=== PATIENT | male | born 1975 | race Native Hawaiian/Other Pacific Islander ===

== ENCOUNTER 2020-09-27 17:04 | Emergency (ER) | payer SELFPAY ==
[2020-09-27 17:14] VITALS: BP 140/82
[2020-09-27] MEDS ORDERED: IBUPROFEN 800 MG TAB PO ONE (18:28)
--- NOTE | 2020-09-27 18:33 | Emergency Department Report ---
ED ENT HPI - General Chief complaint: Earache Stated complaint: PAIN IN EAR Time Seen by Provider: 09/27/20 17:58 Source: patient Mode of arrival: Ambulatory Limitations: No Limitations - History of Present Illness MD complaint: ear pain -: Gradual, days(s) Location: R ear Severity: severe Severity scale (0 -10): 10 Quality: other (painful) Consistency: constant Improves with: none Worsens with: none Context-Epistaxis: other Context- Ear: other (denies recent illness, swimming, travel scuba diving or t raums) Associated Symptoms: discharge from ear, other (Headache and drainage from right ear). denies: fever, cough, gum swelling, toothache, pain with swallowing, sore throat, tinnitus, hearing loss - Related Data Previous Rx's Medication Instructions Recorded Last Taken Type Amoxicillin [Trimox CAP] 500 mg PO Q8H #30 capsule 09/27/20 Unknown Rx Ibuprofen [Motrin] 800 mg PO Q8HR PRN #30 tablet 09/27/20 Unknown Rx Neomy/Polymyx B/Hc Otic Susp 4 drops OTIC TID 10 Days #1 bottle 09/27/20 Unknown Rx [Cortisporin (Otic) Susp] Allergies Allergy/AdvReac Type Severity Reaction Status Date / Time No Known Allergies Allergy Unverified 09/27/20 17:12 ED Dental HPI - General Chief complaint: Earache Stated complaint: PAIN IN EAR Time Seen by Provider: 09/27/20 17:58 Source: patient Mode of arrival: Ambulatory Limitations: No Limitations - Related Data Previous Rx's Medication Instructions Recorded Last Taken Type Amoxicillin [Trimox CAP] 500 mg PO Q8H #30 capsule 09/27/20 Unknown Rx Ibuprofen [Motrin] 800 mg PO Q8HR PRN #30 tablet 09/27/20 Unknown Rx Neomy/Polymyx B/Hc Otic Susp 4 drops OTIC TID 10 Days #1 bottle 09/27/20 Unknown Rx [Cortisporin (Otic) Susp] Allergies Allergy/AdvReac Type Severity Reaction Status Date / Time No Known Allergies Allergy Unverified 09/27/20 17:12 ED Review of Systems ROS: Stated complaint: PAIN IN EAR Other details as noted in HPI Comment: All other systems reviewed and negative Constitutional: denies: chills, diaphoresis, fever, malaise, weakness Eyes: denies: eye pain, eye discharge, vision change ENT: ear pain. denies: throat pain, dental pain, hearing loss, epistaxis, congestion Cardiovascular: denies: chest pain, palpitations, dyspnea on exertion, edema, syncope, paroxysmal nocturnal dyspnea Gastrointestinal: denies: abdominal pain, nausea, vomiting, diarrhea, constipation, hematemesis, melena, hematochezia Genitourinary: denies: urgency, dysuria, frequency, hematuria, discharge, testicular pain, testicular mass Musculoskeletal: denies: back pain, joint swelling, arthralgia Skin: denies: rash, lesions Neurological: headache. denies: numbness, paresthesias, confusion, abnormal gait, vertigo Psychiatric: denies: anxiety, depression, auditory hallucinations, visual hallucinations, homicidal thoughts, suicidal thoughts Hematological/Lymphatic: denies: easy bleeding, easy bruising, swollen glands ED Past Medical Hx - Past Medical History Previous Medical History?: No - Surgical History Past Surgical History?: No - Medications Home Medications: Home Medications Medication Instructions Recorded Confirmed Last Taken Type Amoxicillin [Trimox CAP] 500 mg PO Q8H #30 capsule 09/27/20 Unknown Rx Ibuprofen [Motrin] 800 mg PO Q8HR PRN #30 tablet 09/27/20 Unknown Rx Neomy/Polymyx B/Hc Otic Susp 4 drops OTIC TID 10 Days #1 bottle 09/27/20 Unknown Rx [Cortisporin (Otic) Susp] ED Physical Exam - General Limitations: No Limitations General appearance: alert, other (patient appears uncomfortable from pain) - Eye Eye exam: Present: normal appearance Pupils: Present: normal accommodation - Expanded ENT Exam Expanded TM/Canal exam: Erythema: Right TM, Effusion: Right TM, Canal Discharge: Right TM, Canal Tenderness: Right TM Mouth exam: Absent: drooling, trismus, muffled voice, tongue normal, tongue elevation - Neck Neck exam: Present: normal inspection, lymphadenopathy (just below right ear behind the sternocleidomastoid muscle with some tenderness to palpation but no cellulitis) - Respiratory Respiratory exam: Present: normal lung sounds bilaterally. Absent: respiratory distress, wheezes, rales, rhonchi - Cardiovascular Cardiovascular Exam: Present: regular rate, normal rhythm, normal heart sounds - GI/Abdominal GI/Abdominal exam: Present: soft. Absent: distended, tenderness, guarding - Neurological Exam Neurological exam: Present: alert, oriented X3, CN II-XII intact, normal gait - Psychiatric Psychiatric exam: Present: normal affect, normal mood - Skin Skin exam: Present: intact ED Course Vital Signs 09/27/20 17:13 Temperature 98.6 F Pulse Rate 66 Respiratory 20 Rate Blood Pressure 140/82 [Right] O2 Sat by Pulse 96 Oximetry Critical care attestation.: If time is entered above; I have spent that time in minutes in the direct care of this critically ill patient, excluding procedure time. ED Disposition Clinical Impression: Otitis externa, Otitis media Disposition: - TO HOME OR SELFCARE Is pt being admited?: No Does the pt Need Aspirin: No Condition: Stable Instructions: Otitis Externa, [id number], Otitis Media, Adult, [id number] Additional Instructions: Take the antibiotics as prescribed. Take motrin as prescribed. Follow up with PCP listed on your discharge instructions. Return to ED if worse. Prescriptions: Neomy/Polymyx B/Hc Otic Susp [Cortisporin (Otic) Susp] 4 drops OTIC TID 10 Days #1 bottle Ibuprofen [Motrin] 800 mg PO Q8HR PRN #30 tablet PRN Reason: Pain Amoxicillin [Trimox CAP] 500 mg PO Q8H #30 capsule Referrals: BRIJESH MULLINS MD [Staff Physician] - 3-5 Days Time of Disposition: 18:33
== END 2020-09-27 19:12 | disposition home or self-care (01) ==
LOC: ED 17:04
DX: H60.91 Unspecified otitis externa, right ear (principal); H66.91 Otitis media, unspecified, right ear; Z79.899 Other long term (current) drug therapy
CPT/HCPCS: 99281